=== PATIENT | male | born 1995 | race Caucasian/White ===

== ENCOUNTER 2018-02-08 19:53 | Emergency (ER) | payer BC ==
[~2018-02-08] VITALS: Ht 172.7 cm; Wt 61.2 kg
[2018-02-08 20:00] VITALS: BP 146/90
[2018-02-08 21:29] LABS: EOSINOPHILS % (AUTO) 0.2 % (0.0-3.0); HEMATOCRIT 44.5 % (42.0-52.0); HEMOGLOBIN 14.9 G/DL (14.2-18.0); LYMPHOCYTES % (AUTO) 18.6 % (20.0-45.0); MEAN CORPUSCULAR VOLUME 88 FL (80-99); NEUTROPHILS % (AUTO) 73.2 % (45.0-75.0); PLATELET COUNT 324 K/UL (150-450); RED BLOOD COUNT 5.03 M/UL (4.70-6.10); WHITE BLOOD COUNT 10.2 K/UL (4.8-10.8)
[2018-02-08 21:30] LABS: APPEARANCE,URINE CLEAR; BILIRUBIN, URINE NEGATIVE (NEGATIVE); GLUCOSE, URINE (UA) NEGATIVE (NEGATIVE); KETONES,URINE NEGATIVE (NEGATIVE); LEUKOCYTE ESTERASE ,URINE NEGATIVE (NEGATIVE); NITRITE,URINE NEGATIVE (NEGATIVE); PH,URINE 6 (4.5-8.0); PROTEIN,URINE 2+ (NEGATIVE); UROBILINOGEN,URINE NORMAL MG/DL (0.0-1.0)
[2018-02-08 21:37] LABS: COLOR,URINE YELLOW
[2018-02-08 21:45] LABS: ANION GAP 7 mmol/L (5-15); BLOOD UREA NITROGEN 10 mg/dL (7-18); CALCIUM 9.5 MG/DL (8.5-10.1); CARBON DIOXIDE 30 MMOL/L (21-32); CHLORIDE 102 MMOL/L (98-107); CREATININE 0.9 MG/DL (0.55-1.30); POTASSIUM 3.5 MMOL/L (3.5-5.1); SODIUM 139 MMOL/L (136-145)
[2018-02-08 21:49] LABS: ALANINE AMINOTRANSFERASE 22 U/L (12-78); ALBUMIN 4.7 G/DL (3.4-5.0); ALBUMIN/GLOBULIN RATIO 1.3 (1.0-2.7); ALKALINE PHOSPHATASE 69 U/L (46-116); ASPARTATE AMINO TRANSFERASE 14 U/L (15-37); BILIRUBIN,TOTAL 0.5 MG/DL (0.2-1.0)
[2018-02-08 22:00] VITALS: BP 142/88
--- NOTE | 2018-02-08 22:38 | Emergency Room Report ---
History of Present Illness General Chief Complaint: Behavioral Complaint Source: Patient, EMS ([facility]) Present Illness HPI Patient is a 22-year-old transgender who presented after increased paranoia. Patient reportedly had been recently seen for similar symptoms. Patient had prior history of substance use and reportedly had been recently using methamphetamine. History is obtained from [employer] and EMS. The patient reports having recent increased ambulation feels abnormal hormone levels may have contributed to the current problem. The patient reportedly is taking spironolactone. Reportedly she has a family history of suicide. The mother lives in [place] near [place] ([place] Hugo) Allergies: Coded Allergies: No Known Allergies (Unverified , 02/08/18) Patient History Past Medical History: see triage record Reviewed Nursing Documentation: PMH: Agreed; PSxH: Agreed ([place]rence Hugo) Nursing Documentation-PMH Past Medical History: No Stated History (Lawrence Hugo) Review of Systems All Other Systems: negative except mentioned in HPI ([place]rence Hugo) Physical Exam Vital Signs Date Time Temp Pulse Resp B/P (MAP) Pulse Ox O2 Delivery O2 Flow Rate FiO2 02/08/18 19:47 98.9 76 16 146/90 100 Room Air 99.0 Sp02 EP Interpretation: reviewed, normal General Appearance: alert/responsive, no apparent distress, GCS 15, non-toxic Head: atraumatic Eyes: PERRL, EOMI, lids + conjunctiva normal, other - dilated pupils ENT: hearing intact, no angioedema Neck: supple/symm/no masses, no meningismus Respiratory: effort normal, no wheezing, chest symmetrical Cardiovascular: regular rate, rhythm, no edema Cardiovascular #2: 2+ carotid (R), 2+ carotid (L), 2+ dorsalis pedis (R), 2+ dorsalis pedis (L) Gastrointestinal: non-tender, no mass, non-distended, no rebound/guarding, normal bowel sounds Musculoskeletal: gait & station normal, strength & tone normal, normal ROM, non -tender Neurologic: normal inspection, CN II-XII intact, oriented x3, sensory intact, normal speech Skin: no rash, well hydrated Lymphatic: normal inspection ([place] Hugo) Medical Decision Making Diagnostic Impression: Primary Impression: Behavioral change ER Course Patient presented for increased paranoia. Differential diagnoses include substance abuse, psychosis, bipolar disorder, depression, malingering Because of complexity of patient's case laboratory testing and imaging studies were ordered.The patient does not appear to be any danger to self. the patient is medicallyCleared for psychiatric referral. Labs Test 02/08/18 20:45 02/08/18 20:50 Urine Color Yellow Urine Appearance Clear Urine pH 6 (4.5-8.0) Urine Specific [place] 1.025 (1.005-1.035) Urine Protein 2+ (NEGATIVE) Urine Glucose (UA) Negative (NEGATIVE) Urine Ketones Negative (NEGATIVE) Urine Occult Blood Negative (NEGATIVE) Urine Nitrite Negative (NEGATIVE) Urine Bilirubin Negative (NEGATIVE) Urine Urobilinogen Normal MG/DL (0.0-1.0) Urine Leukocyte Esterase Negative (NEGATIVE) Urine RBC 0-2 /HPF (0 - 0) Urine WBC 0-2 /HPF (0 - 0) Urine Squamous Epithelial Cells None /LPF (NONE/OCC) Urine Calcium Oxalate Crystals Few /LPF (NONE) Urine Bacteria Few /HPF (NONE) Urine Opiates Screen Negative (NEGATIVE) Urine Barbiturates Screen Negative (NEGATIVE) Phencyclidine (PCP) Screen Negative (NEGATIVE) Urine Amphetamines Screen Negative (NEGATIVE) Urine Benzodiazepines Screen Negative (NEGATIVE) Urine Cocaine Screen Negative (NEGATIVE) Urine Marijuana (THC) Screen Negative (NEGATIVE) White Blood Count 10.2 K/UL (4.8-10.8) Red Blood Count 5.03 M/UL (4.70-6.10) Hemoglobin 14.9 G/DL (14.2-18.0) Hematocrit 44.5 % (42.0-52.0) Mean Corpuscular Volume 88 FL (80-99) Mean Corpuscular Hemoglobin 29.5 PG (27.0-31.0) Mean Corpuscular Hemoglobin Concent 33.4 G/DL (32.0-36.0) Red Cell Distribution Width 11.0 % (11.6-14.8) Platelet Count 324 K/UL (150-450) Mean Platelet Volume 7.7 FL (6.5-10.1) Neutrophils (%) (Auto) 73.2 % (45.0-75.0) Lymphocytes (%) (Auto) 18.6 % (20.0-45.0) Monocytes (%) (Auto) 7.0 % (1.0-10.0) Eosinophils (%) (Auto) 0.2 % (0.0-3.0) Basophils (%) (Auto) 1.0 % (0.0-2.0) Sodium Level 139 MMOL/L (136-145) Potassium Level 3.5 MMOL/L (3.5-5.1) Chloride Level 102 MMOL/L (98-107) Carbon Dioxide Level 30 MMOL/L (21-32) Anion Gap 7 mmol/L (5-15) Blood Urea Nitrogen 10 mg/dL (7-18) Creatinine 0.9 MG/DL (0.55-1.30) Estimat Glomerular Filtration Rate > 60 mL/min (>60) Glucose Level 103 MG/DL (74-106) Calcium Level 9.5 MG/DL (8.5-10.1) Total Bilirubin 0.5 MG/DL (0.2-1.0) Aspartate Amino Transf (AST/SGOT) 14 U/L (15-37) Alanine Aminotransferase (ALT/SGPT) 22 U/L (12-78) Alkaline Phosphatase 69 U/L (46-116) Total Protein 8.4 G/DL (6.4-8.2) Albumin 4.7 G/DL (3.4-5.0) Globulin 3.7 g/dL Albumin/Globulin Ratio 1.3 (1.0-2.7) Salicylates Level 0.8 ug/mL (2.8-20) Acetaminophen Level < 2 MCG/ML (10-30) Serum Alcohol < 3 mg/dL ([place]rence Hugo) ER Course I received signout from Dr. Hugo 22-year-old transgender Here for increased paranoia. And suicidal thoughts Medically clear I saw patient, she is stating that she does not want to move because "if I did not move, then only 1 variable can be different, and I can be helped". Very withdrawn affect. When asked about suicidal thoughts she does not answer Patient is not on a hold Patient is pending psych eval in the morning/possible voluntary placement Patient slept through the night, upon re-evaluation in the morning, continues to have very odd affect, not answering questions appropriately. Signed out to Dr Villalta -pending psych eval 02/09/[address] Quiles 22 yo F transgender paranoia PET team placed holdo n patient pending placement in psych facility medically clear Pt stable for xfer to [facility] psych facility (Abelardo Jensen M.D.) I evaluated patient this morning. Patient does appear to be slightly bizarre behavior and thoughts. However is not a danger to self or others. No documented psychiatric history. Family does not live nearby. I contacted Dr. Palma to evaluate patient and provide recommendations (Jeffrey Villalta MD) Last Vital Signs Date Time Temp Pulse Resp B/P (MAP) Pulse Ox O2 Delivery O2 Flow Rate FiO2 02/08/18 20:00 99.0 76 16 146/90 100 Room Air 99.0 Status: improved ([place] Hugo) Status: improved (Jeffrey Villalta MD) Disposition: XFER SHT-TRM HOSP Condition: Serious Referrals: NON PHYSICIAN (PCP) Lawrence Hugo Feb 08, 2018 22:38 Abelardo Jensen M.D. Feb 09, 2018 00:31 Jeffrey Villalta MD Feb 09, 2018 09:13
[2018-02-08 23:57] VITALS: BP 138/88
[2018-02-09] VITALS (16 sets, daily range): BP systolic 107–143; BP diastolic 64–90
[2018-02-09] MEDS ORDERED: LORazepam 1mg tab ORAL ONE (00:30)
--- NOTE | 2018-02-09 10:51 | Consultation ---
History of Present Illness General Date patient seen: Feb 09, 2018 Chief Complaint: Behavioral Complaint Present Illness HPI 22 yo transgender male to female, who denied history of drug use nor psych hx. the pt was delusional and was not talkative. the pt stated that she does not have any si or hi and would like to reunite with family. the pt stated that she felt very anxious and thought that her heart was stopping. the pt was somewhat uncooperative and distrustful due to her psychotic sxs. the pt was a poor historian and i called her mother who lives in [facility], the pts father committed suicide and was dx with schizophrenia. the pt agreed to get a shot long acting antipsychotic as well as oral meds. Mother concured and stated that her friend is coming to er. the pt became agitated and attempted to leave ama. the pts needs more treatment and possibly placement at this time Allergies: Coded Allergies: No Known Allergies (Unverified , 02/08/18) Patient History Limited by: medical condition History Provided By: Patient, Family Member, PMD Healthcare decision maker Resuscitation status Advanced Directive on File Review of Systems Psychiatric: Reports: anxiety, depressed feelings, emotional problems, hallucinations Physical Exam General Appearance: no apparent distress, alert, agitated Last 24 Hour Vital Signs Date Time Temp Pulse Resp B/P (MAP) Pulse Ox O2 Delivery O2 Flow Rate FiO2 02/09/18 08:12 98.2 81 18 128/80 98 Room Air 98.2 02/09/18 06:00 98.2 81 17 132/82 95 Room Air 98.2 02/09/18 04:00 98.0 84 16 143/90 98 Room Air 98.0 02/09/18 02:00 98.0 81 16 143/90 97 Room Air 98.0 02/08/18 23:57 97.9 84 16 138/88 100 Room Air 97.9 02/08/18 22:00 98.1 80 16 142/88 99 Room Air 98.1 02/08/18 20:00 99.0 76 16 146/90 100 Room Air 99.0 02/08/18 19:47 98.9 76 16 146/90 100 Room Air 99.0 Intake and Output 02/08/18 02/09/18 19:00 07:00 Output Total 100 ml Balance -100 ml Output Urine Total 100 ml # Voids 1 Laboratory Tests Test 02/08/18 20:45 02/08/18 20:50 Urine Color Yellow Urine Appearance Clear Urine pH 6 (4.5-8.0) Urine Specific [place] 1.025 (1.005-1.035) Urine Protein 2+ (NEGATIVE) H Urine Glucose (UA) Negative (NEGATIVE) Urine Ketones Negative (NEGATIVE) Urine Occult Blood Negative (NEGATIVE) Urine Nitrite Negative (NEGATIVE) Urine Bilirubin Negative (NEGATIVE) Urine Urobilinogen Normal MG/DL (0.0-1.0) Urine Leukocyte Esterase Negative (NEGATIVE) Urine RBC 0-2 /HPF (0 - 0) H Urine WBC 0-2 /HPF (0 - 0) Urine Squamous Epithelial Cells None /LPF (NONE/OCC) Urine Calcium Oxalate Crystals Few /LPF (NONE) Urine Bacteria Few /HPF (NONE) Urine Opiates Screen Negative (NEGATIVE) Urine Barbiturates Screen Negative (NEGATIVE) Phencyclidine (PCP) Screen Negative (NEGATIVE) Urine Amphetamines Screen Negative (NEGATIVE) Urine Benzodiazepines Screen Negative (NEGATIVE) Urine Cocaine Screen Negative (NEGATIVE) Urine Marijuana (THC) Screen Negative (NEGATIVE) White Blood Count 10.2 K/UL (4.8-10.8) Red Blood Count 5.03 M/UL (4.70-6.10) Hemoglobin 14.9 G/DL (14.2-18.0) Hematocrit 44.5 % (42.0-52.0) Mean Corpuscular Volume 88 FL (80-99) Mean Corpuscular Hemoglobin 29.5 PG (27.0-31.0) Mean Corpuscular Hemoglobin Concent 33.4 G/DL (32.0-36.0) Red Cell Distribution Width 11.0 % (11.6-14.8) L Platelet Count 324 K/UL (150-450) Mean Platelet Volume 7.7 FL (6.5-10.1) Neutrophils (%) (Auto) 73.2 % (45.0-75.0) Lymphocytes (%) (Auto) 18.6 % (20.0-45.0) L Monocytes (%) (Auto) 7.0 % (1.0-10.0) Eosinophils (%) (Auto) 0.2 % (0.0-3.0) Basophils (%) (Auto) 1.0 % (0.0-2.0) Sodium Level 139 MMOL/L (136-145) Potassium Level 3.5 MMOL/L (3.5-5.1) Chloride Level 102 MMOL/L (98-107) Carbon Dioxide Level 30 MMOL/L (21-32) Anion Gap 7 mmol/L (5-15) Blood Urea Nitrogen 10 mg/dL (7-18) Creatinine 0.9 MG/DL (0.55-1.30) Estimat Glomerular Filtration Rate > 60 mL/min (>60) Glucose Level 103 MG/DL (74-106) Calcium Level 9.5 MG/DL (8.5-10.1) Total Bilirubin 0.5 MG/DL (0.2-1.0) Aspartate Amino Transf (AST/SGOT) 14 U/L (15-37) L Alanine Aminotransferase (ALT/SGPT) 22 U/L (12-78) Alkaline Phosphatase 69 U/L (46-116) Total Protein 8.4 G/DL (6.4-8.2) H Albumin 4.7 G/DL (3.4-5.0) Globulin 3.7 g/dL Albumin/Globulin Ratio 1.3 (1.0-2.7) Salicylates Level 0.8 ug/mL (2.8-20) L Acetaminophen Level < 2 MCG/ML (10-30) L Serum Alcohol < 3 mg/dL Height (Feet): 5 Height (Inches): 8.00 Weight (Pounds): 135 Assessment/Plan Status: unchanged Assessment/Plan schizophrenia no sa in past will give fluphenazine dec pt to be placed at [facility] Sheryl Kang M.D. Feb 09, 2018 10:51
[2018-02-09] MEDS ORDERED: Haloperidol 5mg/ml Inj IM ONE (12:15)
[2018-02-09] MEDS ORDERED: LORazepam Inj 2mg/ml 1ml IM ONE (12:15)
[2018-02-09] MEDS ORDERED: MULTIVITAMINS1 EAC2 ORAL (20:22)
[2018-02-09] MEDS ORDERED: SPIRONOLACTONE1 EACH ORAL (20:22)
[2018-02-09] MEDS ORDERED: PREMARIN25 MG IM (20:22)
== END 2018-02-09 23:12 | disposition short-term general hospital (02) ==
LOC: EDBD 19:53 → EMR 21:44
DX: F91.9 Conduct disorder, unspecified (principal); F20.9 Schizophrenia, unspecified; F41.9 Anxiety disorder, unspecified; F32.9 Major depressive disorder, single episode, unspecified
CPT/HCPCS: 36415; 80053; 80307; 81003; 85025; 96372; 99285; G0480; J1630; 80329